=== PATIENT | male | born 1945 | race Caucasian/White ===

== ENCOUNTER → 2017-11-14 | Day surgery (SDC) | payer MEDICARE, BC ==
[~2017-11-14] MED LIST: ALBU4TAB4 PO; ALLO100T PO; ASPI81TA23 PO; BUPIVACAINE HCL PF 0.75% 30 ML VIAL ONE; COQ150CA PO; CYAN1000P IM; FISH100020 PO; FLUT100A INH; FOLI800T PO; GABA300C5 PO; IPRA17I INH; METF500T PO; POTA-163 PO; PROPOFOL 200 MG/20 ML AMP IV ONE; RED600TA PO; SALM50I INH; THEO300T13 PO; TRIA37.53 PO; TRIAMCINOLONE ACETONIDE 40 MG/ML VIAL I-ARTICULR ONE; TYLE325T PO; VERA240C3 PO; ZAFI1TAB4 PO
--- NOTE | 2017-11-16 11:38 | M6 ---
cc: HELEN ENGLISH M.D. DATE: 11/14/2017 1945 PROCEDURE Fluoroscopically guided injection bilateral lumbar facet joints (bilateral L3-4, L4-5 and L5-S1 facet joints). History and physical was completed and signed. Consent was signed. Procedure site was marked. Medications were listed and reconciled. Pain score was recorded. Allergies were noted. Time out was taken. Fluoroscopy time was recorded where applicable. Sedation was administered or directed by Dr. English. The patient was given oxygen. The patient was monitored by a registered nurse. Total procedure time was greater than 15 minutes. IV was started, blood pressure cuff, pulse oximeter and EKG were applied. The patient was placed in the prone position on a Tarun table, sedated with small amounts of propofol titrated to effect. Vital signs were monitored and remained stable throughout the procedure. The lumbar area was prepped with alcohol and 10% Betadine solution and draped with sterile drapes. Fluoroscopy was used in a Alf dog view to clearly visualize the bilateral lumbar facet joints at L3-4, L4-5 and L5-S1. Separate sterile 3-1/2-inch, 25-gauge spinal needles were advanced into these joints under fluoroscopic guidance. There was negative aspiration for blood or any other type of fluid. At each location the patient was given 1 mL of Marcaine 0.75% which contained 10 mg of Kenalog. Following the procedure the patient was taken to the recovery room with stable vital signs, neurologically intact. He will be evaluated immediately and with followup to determine if he has a subjective decrease in his usual pain and a corresponding objective increase in his functional capabilities. WMD JEWEL Kong/HOLDENL /9:19 AM /11:32 AM
== END | disposition home or self-care (01) ==
LOC: PHSDC 07:58
PROVIDERS: ATTEND Pain Medicine Interventional Pain Medicine
DX: M54.5 Low back pain (principal)
CPT/HCPCS: 64493; 64494; 64495; 99152; J3301

== ENCOUNTER → 2017-11-28 | Day surgery (SDC) | payer MEDICARE, BC ==
[~2017-11-28] MED LIST changes: -BUPIVACAINE HCL PF 0.75% 30 ML VIAL ONE; +LIDOCAINE HCL 1% 30 ML VIAL NERV BLOCK ONE; +MEPERIDINE HCL 25 MG/ML VIAL IV ONE; +SODIUM CHLORIDE 0.9% 10 ML VIAL ONE; -TRIAMCINOLONE ACETONIDE 40 MG/ML VIAL I-ARTICULR ONE; +TRIAMCINOLONE ACETONIDE 40 MG/ML VIAL NERV BLOCK ONE; +methylPREDNISolone ACETATE 80 MG/ML VIAL ONE
--- NOTE | 2017-11-29 23:17 | M6 ---
cc: HELEN ENGLISH M.D. DATE: 11/28/2017 DATE OF : 1945 PROCEDURE Fluoroscopically guided L5-S1 interlaminar epidural steroid injection. History and physical was completed and signed. Consent was signed. Procedure site was marked. Medications were listed and reconciled. Pain score was recorded. Allergies were noted. Time out was taken. Fluoroscopy time was recorded where applicable. Sedation was administered or directed by Dr. English. The patient was given oxygen. The patient was monitored by a registered nurse. Total procedure time was greater than 15 minutes. PROCEDURE NOTE: IV was started, blood pressure cuff, pulse oximeter and EKG were applied. The patient was placed in the prone position on a Tarun table sedated with small amounts of propofol titrated to effect. Vital signs were monitored and remained stable throughout the procedure. The lumbar area was prepped with alcohol and 10% Betadine solution and draped with sterile drapes. Fluoroscopy was used to visualize the L5, S1 interlaminar space. The skin was infiltrated with 1% Xylocaine using a 27 gauge needle then a 3-1/2 inch 18-gauge Leiva needle was advanced using fluoroscopic guidance and the [id number] technique into the epidural space at L5-S1 slightly to the left of the midline. There was negative aspiration for blood or any other type of fluid and the patient was given 10 mL of half percent Xylocaine, 80 mg of Depo-Medrol. Following this the patient was taken to the recovery room with stable vital signs neurologically intact. W. MD JEWEL Dinero/MARKY /9:35 AM /10:58 PM
== END | disposition home or self-care (01) ==
LOC: PHSDC 08:08
PROVIDERS: ATTEND Pain Medicine Interventional Pain Medicine
DX: M54.5 Low back pain (principal); M10.9 Gout, unspecified; E78.00 Pure hypercholesterolemia, unspecified; E11.9 Type 2 diabetes mellitus without complications; J44.9 Chronic obstructive pulmonary disease, unspecified
CPT/HCPCS: 62323; 99152; J1040; J2175; J3301

== ENCOUNTER → 2018-01-10 | Day surgery (SDC) | payer MEDICARE, BC ==
[~2018-01-10] MED LIST changes: -LIDOCAINE HCL 1% 30 ML VIAL NERV BLOCK ONE; +LIDOCAINE HCL 1% PF 30 ML VIAL INFIL ONE
--- NOTE | 2018-01-10 11:41 | M6 ---
cc: Pernell English MD DATE: 01/10/2018 PROCEDURE PERFORMED: Fluoroscopically guided L5-S1 interlaminar epidural steroid injection. History and physical was completed and signed. Consent was signed. Procedure site was marked. Medications were listed and reconciled. Pain score was recorded. Allergies were noted. Time out was taken. Fluoroscopy time was recorded where applicable. Sedation was administered or directed by Dr. English. The patient was given oxygen. The patient was monitored by a registered nurse. Total procedure time was greater than 15 minutes. DESCRIPTION OF PROCEDURE: IV was started. Blood pressure cuff, pulse oximeter and EKG were applied. The patient was placed in the prone position on the Tarun table, sedated with small amounts of Propofol titrated to effect. Vital signs were monitored and remained stable throughout the procedure. Lumbar area was prepped with alcohol and 10% Betadine solution and draped with sterile drapes. Fluoroscopy was used to visualize the L5-S1 interlaminar space. Then, the skin was infiltrated with 1% Xylocaine, using a 27-gauge needle. Then, a 3-1/2 inch, 18-gauge Leiva needle was advanced using fluoroscopic guidance and the loss of resistance technique into the epidural space at L5-S1, slightly to the right of the midline. There was negative aspiration for blood or any other type of fluid and the patient was given 10 mL of 0.5% Xylocaine and 80 mg of Depo-Medrol. Following the procedure, the patient was taken to the recovery room with stable vital signs, neurologically intact. MD JEWEL Wright/ANT , 11:11 AM , 11:40 AM
== END | disposition home or self-care (01) ==
LOC: PHSDC 09:08
PROVIDERS: ATTEND Pain Medicine Interventional Pain Medicine
DX: M54.5 Low back pain (principal)
CPT/HCPCS: 62323; 99152; J1040; J2175; J3301

== ENCOUNTER → 2018-02-08 | Day surgery (SDC) | payer MEDICARE, BC ==
[~2018-02-08] MED LIST changes: +CHOL10008 PO; +IBUP-1129 PO; +LIDOCAINE HCL 1% 30 ML VIAL INFIL ONE; -LIDOCAINE HCL 1% PF 30 ML VIAL INFIL ONE; -TRIAMCINOLONE ACETONIDE 40 MG/ML VIAL NERV BLOCK ONE
--- NOTE | 2018-02-08 09:50 | M6 ---
cc: Pernell English MD DATE: 02/08/2018 PROCEDURE PERFORMED: Fluoroscopically guided lumbar epidural steroid injection. History and physical was completed and signed. Consent was signed. Procedure site was marked. Medications were listed and reconciled. Pain score was recorded. Allergies were noted. Time out was taken. Fluoroscopy time was recorded where applicable. Sedation was administered or directed by Dr. English. The patient was given oxygen. The patient was monitored by a registered nurse. Total procedure time was greater than 15 minutes. IV was started. Blood pressure cuff, pulse oximeter and EKG were applied. The patient was placed in the prone position on a Tarun table, sedated with small amounts of Propofol titrated to effect. Vital signs were monitored and remained stable throughout the procedure. The lumbar area was prepped with alcohol and 10% Betadine solution and draped with sterile drapes. Fluoroscopy was used to visualize the L1-2 interspace. The skin was infiltrated with 1% Xylocaine, using a 27-gauge needle. Then, a 3-1/2 inch, 18-gauge Leiva needle was advanced using fluoroscopic guidance and the loss of resistance technique into the epidural space at L1-L2, slightly to the left of the midline. There was negative aspiration for blood or any other type of fluid and the patient was given 10 mL of 0.5% Xylocaine and 80 mg of Depo-Medrol. Following the procedure, the patient was taken to the recovery room with stable vital signs, neurologically intact. MD MCKENNA WrightM/TL , 09:38 AM , 09:49 AM
== END | disposition home or self-care (01) ==
LOC: PHSDC 08:00
PROVIDERS: ATTEND Pain Medicine Interventional Pain Medicine
DX: M54.9 Dorsalgia, unspecified (principal)
CPT/HCPCS: 62321; 99152; J1040; J2175